=== PATIENT | male | born 1980 | race Caucasian/White ===

== ENCOUNTER 2018-08-19 12:36 | Outpatient (CLI) | payer MEDICAID | END 2018-08-19 23:59 | disposition home or self-care (01) | LOC: RAD 12:36 | PROVIDERS: ATTEND Family Medicine | DX: G40.909 Epilepsy, unspecified, not intractable, without status epilepticus (principal) | CPT/HCPCS: 95816 ==

== ENCOUNTER 2023-09-24 16:24 | Outpatient (CLI) | payer MEDICAID | END 2023-09-24 23:59 | disposition home or self-care (01) | LOC: RAD 16:24 | PROVIDERS: ATTEND Family Medicine | DX: M54.2 Cervicalgia (principal) | CPT/HCPCS: 72050 ==